=== PATIENT | male | born 1960 | race African-American/Black ===

== ENCOUNTER 2021-12-21 03:12 | Emergency (ER) | payer OTHER ==
[~2021-12-21] VITALS: Ht 167.6 cm; Wt 99.8 kg
[2021-12-21 03:23] VITALS: BP_SYST 150
--- NOTE | 2021-12-21 03:27 | NUR ---
WALKED IN C/O BILAT FACIAL SWELLING IN CHEEKS SINCE YEST. 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
--- NOTE | 2021-12-21 03:27 | NUR ---
Patient triaged and placed in waiting room. VSS and patient appears in no acute distress at this time. Accompanied by SELF, awaiting available bed, and MD notified of need for MSE.
--- NOTE | 2021-12-21 03:56 | NUR ---
Patient to ER bed 6 to gown for evaluation. Side rails up. Report given to MICKEY GUILLAUME.
--- NOTE | 2021-12-21 04:29 | NUR ---
COVID AND FLU SAMPLE COLLECTED AND SENT TO LAB
[2021-12-21] MEDS ORDERED: DEXAMETHASONE SOD PHOSPHATE 10 MG/ML VIAL IM ONE (04:30)
[2021-12-21] MEDS ORDERED: ACETAMINOPHEN 500 MG TABLET PO ONE (04:30)
[2021-12-21] MEDS ORDERED: IBUPROFEN 600 MG TABLET PO ONE (05:00)
[2021-12-21] MEDS ORDERED: IBUPROFEN 600 MG TABLET ONE (05:03)
--- NOTE | 2021-12-21 05:15 | NUR ---
pt is alert and oriented x 4. He follows command, complaining of his face is swallen, prefers sitting in the chair position. no sign of respiartory distress noted. patient is good spririt.
[2021-12-21 06:12] LABS: EOSINOPHILS # (AUTO) 1.9 K/uL (0.0-0.4); EOSINOPHILS % (AUTO) 41.9 % (0.0-4.0); HEMATOCRIT 40.8 % (36-54); LYMPHOCYTES # (AUTO) 0.7 K/uL (1.0-5.5); LYMPHOCYTES % (AUTO) 15.1 % (20.5-51.5); MEAN CORPUSCULAR HEMOGLOBIN 30 pg (27-31); MEAN CORPUSCULAR HGB CONC 34 % (32-36); MEAN CORPUSCULAR VOLUME 88 fL (79.0-98.0); MONOCYTES # (AUTO) 0.1 K/uL (0.0-1.0); MONOCYTES % (AUTO) 1.2 % (1.7-9.3); NEUTROPHILS # (AUTO) 1.9 K/uL (1.8-7.7); NEUTROPHILS % (AUTO) 41.8 % (40.0-70.0); PLATELET COUNT (AUTO) 269 K/uL (130-430); RED BLOOD CELL COUNT(AUTO) 4.66 MIL/uL (4.2-6.2); WHITE BLOOD COUNT (AUTO) 4.6 K/uL (4.8-10.8)
[2021-12-21] MEDS ORDERED: IBUP-1969 PO (06:27)
[2021-12-21] MEDS ORDERED: PRED20TA PO (06:27)
[2021-12-21 06:38] LABS: CALCIUM 9.2 mg/dL (8.4-11.0); CREATININE 1.24 mg/dL (0.55-1.30); POTASSIUM 3.8 mmol/L (3.5-5.1)
[2021-12-21 06:44] LABS: ALBUMIN 3.9 g/dL (3.4-4.8); TOTAL BILIRUBIN 0.2 mg/dL (0.0-1.0)
[2021-12-21] MEDS ORDERED: TRAM50TA PO (06:58)
[2021-12-21 07:18] VITALS: BP_SYST 144
--- NOTE | 2021-12-21 07:20 | NUR ---
Patient given written and verbal discharge instructions and verbalizes understanding. ER MD discussed with patient the results and treatment provided. Patient in stable condition. ID arm band removed. IV catheter removed intact and dressing applied, no active bleeding. Rx of 3 MEDICATIONS given. Patient educated on pain management and to follow up with PMD. Pain Scale . Opportunity for questions provided and answered. Medication side effect fact sheet provided. PT IS STABLE TO GO HOME. VITAL SIGN WIHIN NORMAL LIMITS
== END 2021-12-21 07:18 | disposition home or self-care (01) ==
LOC: SED 03:12
DX: K11.20 Sialoadenitis, unspecified (principal); J06.9 Acute upper respiratory infection, unspecified; R22.0 Localized swelling, mass and lump, head; I10 Essential (primary) hypertension; Z79.899 Other long term (current) drug therapy; Z20.822 Contact with and (suspected) exposure to COVID-19
CPT/HCPCS: 99283; 87426; 80053; 82150; 85025; 36415; 96372; 87804 ×2; J1100